=== PATIENT | female | born 1990 | race Caucasian/White ===

== ENCOUNTER 2021-04-08 19:38 | Emergency (ER) | payer MEDICAID, SELFPAY ==
[2021-04-08 19:45] VITALS: BP 140/82; PULSE 76; RESP 20; TEMP 35.7; O2SAT 100
--- NOTE | 2021-04-08 20:03 | ED.GENADULT ---
HPI - General Adult General Chief complaint: Nausea/Vomiting/Diarrhea Stated complaint: nausea, pt is Source: patient Mode of arrival: ambulatory Limitations: no limitations History of Present Illness HPI narrative: Patient presents for evaluation of nausea and vomiting since this morning. She states she is unable to keep anything down. She reports vomiting 25 times today. She is currently , 15 weeks gestation, with confirmed IUP during this . . RHEUMATOLOGY NURSE is Dr. Brenner at [facility]. Called her RHEUMATOLOGY NURSE who advised that she urgent care for IV hydration. Patient states she did have nausea and vomiting earlier in her , and responded well to B6. She denies any fever, chills, abdominal pain, vaginal bleeding, vaginal discharge, urinary symptoms. No recent sick contacts. No new foods. No recent antibiotics. She states she did test positive for Covid about 2 weeks ago. Symptoms at that time were limited to body aches. Those symptoms resolved. She took a repeat Covid test and that was negative. Related Data Home Medications Medication Instructions Recorded Confirmed No Home Medications 04/08/21 04/08/21 Allergies Allergy/AdvReac Type Severity Reaction Status Date / Time naproxen AdvReac Intermediate gi upset Verified 04/08/21 19:46 Review of Systems Review of Systems: CONSTITUTIONAL: Denies fever, chills, or sweats. EYES: Denies visual changes, redness, or discharge. ENT: Denies rhinorrhea, congestion, sore throat, or otalgia. CARDIOVASCULAR: Denies chest pain, palpitations, or edema. RESPIRATORY: Denies cough or dyspnea. GASTROINTESTINAL: Reports nausea and vomiting. Denies abdominal pain and diarrhea. GENITOURINARY: Denies dysuria or hematuria. SKIN: Denies rash or itching. MUSCULOSKELETAL: Denies back pain, joint pain, or myalgia. NEUROLOGIC: Denies headache, numbness, dizziness, or weakness. PSYCHIATRIC: Denies anxiety or depression. [facility] Past Medical History Medical History No pertinent past medical history Surgical History Surgical History No pertinent past surgical history Family History Family History Mother No pertinent past medical history Social History Social History Alcohol intake: never Substance use: never Additional living arrangements comments: Lives with sergey? Gender identity (if verbalized by the patient): Female Sexual Orientation (if Verbalized by the Patient): Straight or Heterosexual Spiritual care concerns: No Exam Narrative: GENERAL: Appears acutely ill, although nontoxic. HEAD: Normocephalic, atraumatic. EYES: PERRLA and EOMI. ENT: Nares clear, no rhinorrhea or epistaxis. Mucous membranes moist. Oropharynx without tonsillar hypertrophy exudate or other lesions. Bilateral TMs pearly farrell nonbulging NECK: Supple. No adenopathy or masses. No carotid bruits or JVD CHEST: Clear to auscultation. No respiratory distress. No wheezes rales or rhonchi HEART: Regular rate and rhythm. No murmur heard. Normal peripheral pulses. ABDOMEN: Soft, nontender, nondistended, normal active bowel sounds. Gravid uterus EXTREMITIES: Normal range of motion. No edema. SKIN: Warm, dry, no rash. NEURO: No focal deficits. Alert and oriented x3. PSYCH: Normal mood and affect. Course Course Emergency Course: This is a 30-year-old female who presented with complaints of nausea and vomiting, with inability to keep anything down. She is currently , 15 weeks gestation. She has already had a confirmed IUP per ultrasound during this . heart tones were detected. We do not have the capacity to provide patient with IV fluids here. I contacted [facility] and spoke with CARLOS Mehta, who
--- NOTE | 2021-04-08 20:05 | PC.NURSE ---
2000 FHTs auscultated lower suprapubic area at 136 per minute.
== END 2021-04-08 20:05 | disposition short-term general hospital (02) ==
PROVIDERS: Emergency Provider Nurse Practitioner
DX: O21.9 Vomiting of pregnancy, unspecified (principal); Z3A.15 15 weeks gestation of pregnancy
CPT/HCPCS: 99202; G0463

== ENCOUNTER 2021-04-08 20:25 | Emergency (ER) | payer MEDICAID, SELFPAY ==
[2021-04-08 20:29] VITALS: BP 125/73; PULSE 71; RESP 16; O2SAT 100
--- NOTE | 2021-04-08 21:10 | ED.GENADULT ---
HPI - General Adult General Chief complaint: Nausea/Vomiting/Diarrhea Stated complaint: N/V 15wk preg Time Seen by Provider: 04/08/21 21:03 History of Present Illness HPI narrative: Patient 30-year-old female presents to emergency department with chief complaint of nausea and vomiting. The patient reports that she is currently and followed by OB at [facility]. Patient reports that she has had problems with nausea and vomiting during this . The patient reports that for about a week she has not really had significant nausea and vomiting until the last 24 hours she started vomiting again patient states today she has vomited about 27 times and has vomited since she arrived to the emergency department the patient reports she is vomiting up just clear liquid at this point. Patient denies pain reports has had a confirmatory ultrasound Related Data Allergies Allergy/AdvReac Type Severity Reaction Status Date / Time naproxen AdvReac Intermediate gi upset Verified 04/08/21 19:46 Review of Systems Review of Systems: A 10 system review of systems was completed on the patient and is negative except for what is stated in the HPI. Nursing and ancillary documentation was reviewed. PMFSH Past Medical History Medical History No pertinent past medical history Surgical History Surgical History No pertinent past surgical history Family History Family History Mother No pertinent past medical history Social History Social History Alcohol intake: never Substance use: never Additional living arrangements comments: Lives with sergey? Gender identity (if verbalized by the patient): Female Sexual Orientation (if Verbalized by the Patient): Straight or Heterosexual Spiritual care concerns: No Exam Narrative: GENERAL: Well-appearing, well-nourished, and in no acute distress. HEAD: Normocephalic, atraumatic. EYES: PERRLA and EOMI. ENT: Nares clear, no rhinorrhea or epistaxis. Mucous membranes moist. NECK: Supple. CHEST: Clear to auscultation. No respiratory distress. HEART: Regular rate and rhythm. No murmur heard. Normal peripheral pulses. ABDOMEN: Soft, nontender, nondistended, normal active bowel sounds. EXTREMITIES: Normal range of motion. No edema. SKIN: Warm, dry, no rash. NEURO: No focal deficits. Alert and oriented x3. PSYCH: Normal mood and affect. Course Vital Signs Vital signs: Vital Signs Pulse Rate 71 04/08/21 20:29 Respiratory Rate 16 04/08/21 20:29 Blood Pressure 125/73 04/08/21 20:29 Pulse Oximetry 100 04/08/21 20:29 Pulse Rate 71 04/08/21 20:29 Respiratory Rate 16 04/08/21 20:29 Blood Pressure 125/73 04/08/21 20:29 Pulse Oximetry 100 04/08/21 20:29 Medical Decision Making Vital Signs Vital Signs: Vital Signs Pulse Rate 71 04/08/21 20:29 Respiratory Rate 16 04/08/21 20:29 Blood Pressure 125/73 04/08/21 20:29 Pulse Oximetry 100 04/08/21 20:29 Pulse Rate 71 04/08/21 20:29 Respiratory Rate 16 04/08/21 20:29 Blood Pressure 125/73 04/08/21 20:29 Pulse Oximetry 100 04/08/21 20:29 Lab Data Result diagrams: 04/08/21 21:24 04/08/21 21:24 Labs: Lab Results 04/08/21 04/08/21 04/08/21 Range/Units 21:24 21:24 22:16 WBC 14.1 H (4.5-10.0) K/mm3 RBC 4.29 (4.2-5.4) M/mm3 Hgb 13.4 (12.0-15.0) g/dL Hct 38.9 (37.0-47.0) % MCV 90.7 (80-100) fl MCH 31.2 (26-34) pg MCHC 34.4 (32-36) g/dl RDW 12.9 (11.5-14.5) % Plt Count 228 (150-375) k/mm3 MPV 10.2 (7.4-10.4) fl Immature Gran % (Auto) 0.4 (0-0.5) % Neut % (Auto) 92.8 H (45.5-73.1) % Lymph % (Auto) 4.9 L (18.3-44.2) % M
[2021-04-08] MEDS: SODIUM CHLORIDE 0.9% IV 1,000 ML 999 ML IV CONT ×2 (21:25→23:20)
[2021-04-08] MEDS: METOCLOPRAMIDE HCL INJ 10 MG/2 ML VIAL IV PUSH (21:25)
[2021-04-08 21:30] LABS: Basophils Percent Auto 0.1 % (0.2-1.2); Hematocrit 38.9 % (37.0-47.0); Hemoglobin 13.4 g/dL (12.0-15.0); Immature Granulocyte Absolute 0.06 K/mm3 (0.00-0.031); Immature Granulocyte Percent A 0.4 % (0-0.5); Lymphocytes Absolute Auto 0.69 K/mm3 (0.9-3.2); Lymphocytes Percent Auto 4.9 % (18.3-44.2); Mean Corpuscular HGB Conc 34.4 g/dl (32-36); Mean Corpuscular Hemoglobin 31.2 pg (26-34); Mean Corpuscular Volume 90.7 fl (80-100); Mean Platelet Volume 10.2 fl (7.4-10.4); Monocytes Absolute Auto 0.3 K/mm3 (0.1-0.6); Monocytes Percent Auto 1.8 % (2.6-8.5); Neutrophils Absolute Auto 13.1 K/mm3 (1.3-6.7); Neutrophils Percent Auto 92.8 % (45.5-73.1); Platelet Count Result 228 k/mm3 (150-375); Red Blood Count 4.29 M/mm3 (4.2-5.4); Red Cell Distribution Width 12.9 % (11.5-14.5); White Blood Count 14.1 K/mm3 (4.5-10.0)
[2021-04-08 21:41] LABS: Alanine Aminotransferase 21 U/L (4-35); Albumin Level 4.7 g/dL (3.5-5.1); Alkaline Phosphatase 61 U/L (38-126); Anion Gap 9 mmol/L (8-16); Aspartate Amino Transferase 27 U/L (14-36); Bilirubin,Total 0.6 mg/dL (0.2-1.3); Blood Urea Nitrogen 10 mg/dL (7-17); Calcium 9.8 mg/dL (8.4-10.2); Carbon Dioxide 20 mmol/L (22-30); Chloride 106 mmol/L (98-107); Estimated CRCL calculation 208 ml/min; Estimated Glomerular Filt Rate > 60; Glucose 104 mg/dL (65-110); Lipase 263 U/L (23-300); Magnesium 1.7 mg/dL (1.6-2.3); Potassium 3.9 mmol/L (3.4-5.0); Sodium 135 mmol/L (137-145)
[2021-04-08 22:34] LABS: Add Urine Microscopic? YES; Appearance Urine Clear (Clear); Bilirubin Urine Negative (Negative); Blood Urine Negative (Negative); Color Urine Yellow (Yellow); Glucose Urine UA Negative (Negative); Ketones Urine 2+ mg/dL (Negative); Leukocyte Esterase Ur Negative LEU/UL (Negative); Mucus Urine Heavy /lpf; Nitrate Urine Negative (Negative); Protein Urine 1+ mg/dL (Negative); Squamous Epithelial Cell Urine Few /hpf (Few); Urobilinogen Urine Negative mg/dL (<2.0); WBC Urine 0-3 /hpf
[2021-04-08] MEDS: MAGNESIUM SULF 1 GM/D5W 100 ML 1 GM/100 ML BAG IVPB (23:21)
[2021-04-08] MEDS: POTASSIUM CHLORIDE 20 MEQ PACKET (FOR LIQUID) PO (23:21)
== END 2021-04-09 00:07 | disposition home or self-care (01) ==
PROVIDERS: Emergency Provider Emergency Medicine
DX: O21.9 Vomiting of pregnancy, unspecified (principal); Z3A.15 15 weeks gestation of pregnancy
CPT/HCPCS: 36415; 80053; 81001; 83690; 83735; 85025; 96361; 96365; 96375; 99284; A9270; J2765; J3475; J7030

== ENCOUNTER 2023-07-12 11:43 | Observation (INO) | payer OTHER, SELFPAY ==
[2023-07-12] VITALS (20 sets, daily range): BP systolic 71–133; BP diastolic 42–73; PULSE 59–92; RESP 12–29; TEMP 35.8–36.6; O2SAT 91–100; BMI 33.5
--- NOTE | ~2023-07-12 | CT_ITS ---
Clinical Indication: Pulmonary embolus CT Scan of the Chest with Contrast: Technique: Contiguous sections were acquired throughout the chest after intravenous administration of 100 cc of Omnipaque 350. Dose reduction technique was used on this scan by utilizing automated expos ure control and iterative reconstruction technique. The dose-length product (DLP) was 683.53 mGy-cm. Findings: There is no evidence of any significant mediastinal, hilar or axillary lymphadenopathy. There is no f illing defect in the pulmonary arterial tree to suggest pulmonary embolus. There is no evidence of ao rtic dissection or aneurysm. There is no evidence of pleural or pericardial effusion. The lungs are clear. No pulmonary nodules or infiltrates are noted. Images through the upper abdomen reveal no abnormalities. Impression: No evidence of pulmonary embolus, aortic dissection, or aortic aneurysm. Clear lungs. Reviewed, dictated and finalized at [facility]. Impression: No evidence of pulmonary embolus, aortic dissection, or aortic aneurysm. Clear lungs.
--- NOTE | 2023-07-12 11:59 | ECG_ITS ---
SEE SCANNED COPY FOR CONFIRMED REPORT MTDD
[2023-07-12 12:03] LABS: Glucose Point of Care 102 mg/dl (65-105)
[2023-07-12 12:08] LABS: Basophils Percent Auto 0.2 % (0.2-1.2); Eosinophils Absolute Auto 0.1 K/mm3 (0-0.3); Eosinophils Percent Auto 0.7 % (0-4.4); Hematocrit 35.8 % (37.0-47.0); Immature Granulocyte Absolute 0.07 K/mm3 (0.00-0.031); Immature Granulocyte Percent A 0.7 % (0-0.5); Lymphocytes Absolute Auto 1.75 K/mm3 (0.9-3.2); Lymphocytes Percent Auto 18.4 % (18.3-44.2); Mean Corpuscular HGB Conc 33.5 g/dl (32-36); Mean Corpuscular Hemoglobin 30.5 pg (26-34); Mean Corpuscular Volume 91.1 fl (80-100); Mean Platelet Volume 10.1 fl (7.4-10.4); Monocytes Absolute Auto 0.6 K/mm3 (0.1-0.6); Monocytes Percent Auto 6.4 % (2.6-8.5); Neutrophils Percent Auto 73.6 % (45.5-73.1); Platelet Count Result 233 k/mm3 (150-375); Red Blood Count 3.93 M/mm3 (4.2-5.4); White Blood Count 9.5 K/mm3 (4.5-10.0)
--- NOTE | 2023-07-12 12:08 | ED.SYNCOPE ---
HPI - Syncope General Chief Complaint: Syncope Stated Complaint: syncopy Time Seen by Provider: 07/12/23 12:00 Source: patient and family History of Present Illness HPI narrative: 32 years old white female, 6 months , came to the emergency room because went out for lunch with friends and family, did not feel well, developed sharp stabbing pain at the left side of the chest lasted for 1 minutes then resolved, subsequently patient feels like she is going to black out and she did black out 3 times since that event. Patient vomited twice in between. Currently feeling okay, denying any symptoms. She denies any chest pain, shortness of breath, back pain, fever, chills. Patient report having history of cold symptoms for the last 2 weeks, did not see any medical provider for it. Patient does not smoke or drink, healthy otherwise, on vitamins. Related Data Allergies Allergy/AdvReac Type Severity Reaction Status Date / Time naproxen AdvReac Intermediate gi upset Verified 07/12/23 11:54 Review of Systems Review of Systems: All systems reviewed & are unremarkable except as noted in HPI and below PMFSH Past Medical History Medical History No pertinent past medical history Surgical History Surgical History No pertinent past surgical history Family History Family History Mother No pertinent past medical history Social History Social History Alcohol intake: never Substance use: never Additional living arrangements comments: Lives with sergey? Gender identity (if verbalized by the patient): Female Sexual Orientation (if Verbalized by the Patient): Straight or Heterosexual Spiritual care concerns: No Exam Narrative: General appearance: Well-developed, well-nourished Skin: Normal color Head: Normocephalic, nontraumatic Eyes: Clear conjunctiva ENT: Oropharynx normal, ears normal, nose normal Neck: Supple, nontender Chest and respiratory: Airway patent, no respiratory distress, no accessory muscle use Heart: Regular rate/rhythm Abdomen: Soft, nontender, no organomegaly, quiet bowel sounds Vascular: Normal peripheral pulses, normal capillary refill. Musculoskeletal: Normal range of motion, nontender back Neurologic: Alert and oriented ?3, BOTTOM SAW OPERATOR is normal as tested, no gross motor deficit Course Course Emergency Course: Improving Reevaluation(s) Reevaluation #1: Currently patient feels back to normal, denying any symptoms. Date: 07/12/23 Time: 14:15 Consultations Consultation #1: Dr. Virginia Cain for CTA to rule out PE Date: 07/12/23 Time: 14:15 Vital Signs Vital signs: Vital Signs Temperature 36.6 C 07/12/23 11:47 Pulse Rate 85 07/12/23 11:47 Respiratory Rate 24 H 07/12/23 11:47 Blood Pressure 99/72 L 07/12/23 11:47 Pulse Oximetry 93 07/12/23 11:47 Oxygen Delivery Room Air 07/12/23 11:47 Temperature 36.6 C 07/12/23 11:47 Pulse Rate 92 07/12/23 14:46 Respiratory Rate 26 H 07/12/23 14:46 Blood Pressure 105/64 07/12/23 14:46 Pulse Oximetry 98 07/12/23 14:46 Oxygen Delivery Room Air 07/12/23 11:47 MDM - Syncope MDM Narrative Medical decision making narrative: Patient presents with syncopes, on arrival to the ED blood pressure was low,90 over 72, patient denies any diarrhea or vomiting in the last 24 hours Differential diagnosis. Patient reports history of syncopes in the past secondary to migraine headache, she denies any headache today. Differential d
[2023-07-12] MEDS: SODIUM CHLORIDE 0.9% IV 1,000 ML 999 ML IV CONT ×2 (12:14)
[2023-07-12 12:18] LABS: Alanine Aminotransferase 15 U/L (6-35); Albumin Level 3.9 g/dL (3.5-5.1); Alkaline Phosphatase 62 U/L (38-126); Anion Gap 7 mmol/L (4-12); Aspartate Amino Transferase 21 U/L (14-36); Bilirubin,Total 0.4 mg/dL (0.2-1.3); Blood Urea Nitrogen 11 mg/dL (7-17); Carbon Dioxide 19 mmol/L (22-30); Chloride 110 mmol/L (98-107); Estimated CRCL calculation 171 ml/min; Estimated Glomerular Filt Rate > 60; Glucose 101 mg/dL (65-110); Potassium 3.8 mmol/L (3.4-5.0); Sodium 136 mmol/L (137-145)
[2023-07-12 12:49] LABS: Alveolar/Arterial O2 Gradient 31.8 mmHg; Base Excess ABG -3.3 mEq/l (+/-2.0); Device ROOM AIR; Fractional Inspired Oxygen 21 %; HCO3 ABG 20.6 mEq/l (22.0-26.0); Modified Allen's Test Pass; Oxygen Content ABG 14.2 %vol (16.0-22.0); Oxygen Saturation ABG 95.8 % (95.0-100.0); Oxyhemoglobin 93.1 % THb (90.0-100.0); PCO2 ABG 33.3 mmHg (35.0-45.0); PO2 ABG 78.1 mmHg (80.0-100.0); PO2 FiO2 Ratio Arterial Blood 3.72 %; Site Drawn LEFT RADIAL; Total Hemoglobin 10.8 g/dL (12.0-18.0)
[2023-07-12 13:09] LABS: D Dimer 0.55 ug/mL (<0.48)
[2023-07-12 13:27] LABS: Influenza A QL RT-PCR Negative (Negative); Influenza B QL RT-PCR Negative (Negative); SARS-CoV-2 RNA PCR Negative (Negative)
--- NOTE | 2023-07-12 15:21 | PM.IMHP ---
H&P: HPI History of Present Illness Date/Time: 07/12/23 15:21 Chief Complaint: syncope with hypotension Narrative: This is a 32-year-old female patient currently 6 months (25 weeks) who is admitted to the hospital for syncope with hypotension. Patient reports that she was sitting around talking and eating breakfast when she suddenly passed out at the table. She denies any head injury trauma or initial prodrome all symptoms. After regaining consciousness roughly 30 seconds, she was back to normal immediately but had a 2nd syncopal episode and small amount of emesis at that time. Patient reports a total of 3 syncopal episodes this morning did have some fuzzy vision indicating she might pass out before the 2nd syncope. EMS was called and her 3rd episode of syncope was during the ambulance trip to the hospital. She had to be awakened using ammonia smelling salts. On arrival to the emergency department patient noted to be hypotensive which improved after 2 L of IV fluids. Patient reports she has had some cold symptoms over the last 2 weeks and she was vacation in [place] she had a little bit right-sided pelvic pain that cleared and has recurred. She denies any diarrhea. While in the emergency department the ER physician contacted INSTRUMENT MECHANICS SUPERVISOR at [facility] (patient plans to deliver at [facility]) and INSTRUMENT MECHANICS SUPERVISOR at our facility. Both are requesting that patient stay for echocardiogram to rule out induced cardiomyopathy. Cardiology was consulted by the ER physician to also see the patient. CTA was completed to rule out pulmonary embolus. This was negative. Lungs were clear on CT image, no signs of aspiration pneumonitis. Just prior to arriving on the floor patient began to have recurrent episodes of emesis. She states that she has been having increased emesis during the 2nd trimester of this and is on Zofran at home which sometimes helps. Her symptoms have been intermittent for weeks but became more prominent recently. Patient denies any abdominal pain, vaginal bleeding, cramping, vaginal discharge, concern for STD, concern for safety or violence. She states she has a past history of frequent headaches/chronic migraine and she usually treats that with ibuprofen but has not been doing so during . Patient's significant other and later patient's mother were both at bedside to provide cooperating information. Review of Systems Review of Systems: All systems reviewed & are unremarkable except as noted in HPI and below PMFSH Past Medical History Medical History No pertinent past medical history Surgical History Surgical History No pertinent past surgical history Family History Family History Mother No pertinent past medical history Social History Social History Smoking status: Never smoker Alcohol intake: never Substance use: never Do You Feel Safe in your Home?: Yes Lack of Transportation: No Lack of Food: Never True Current Housing: I Have Housing Concerned About Future Housing: No Difficulty Paying Gas/Electric Bills: No Difficulty Paying for Meds: No Currently Unemployed: No Education: Decline to Answer Difficulty w/ Childcare or Family Care: Decline to Answer Additional living arrangements comments: Lives with fianc? Gender identity (if verbalized by the patient): Female Sexual Orientation (if Verbalized by the Patient): Straight or Heterosexual Spiritual care concerns: No Meds Home Medications and Allergies Home Medications Medication Instructions Recorded Confirmed Type metoclopramide HCl 10 mg tablet 10 mg PO QID PRN nausea and 04/08/21 07/12/23 Rx (Reglan) vomiting 7 days #28 tabs vitamins no.85-iron 10 1 cap PO DAILY 07/12/23 07/12/23 History
[2023-07-12] MEDS: SODIUM CHLORIDE 0.9% IV 1,000 ML 150 ML IV CONT ×2 (16:07→23:17)
[2023-07-12] MEDS: ONDANSETRON HCL ODT 4 MG TABLET PO (17:32)
--- NOTE | 2023-07-12 17:45 | ADMGEN ---
This patient, Cassandra Hein, was admitted to IMU Room 231-01. Patient/family oriented to hospital policies and general routines including ID bracelet, bed and alarms, visiting hours, pain management, procedures, bathroom and other care routines, personal items, smoking policy, room service/diet, and visiting hours. Information on how to activate the Rapid Response Team has been discussed. Patient/Family are encouraged to report perceived risks to care and to ask questions if they do not understand what they are told or what they should do.
[2023-07-12] MEDS: ACETAMINOPHEN 325 MG TABLET 650 MG PO (18:22)
[2023-07-12] MEDS: METOCLOPRAMIDE HCL INJ 10 MG/2 ML VIAL IV PUSH (18:22)
[2023-07-13] VITALS (10 sets, daily range): BP systolic 114–127; BP diastolic 49–74; PULSE 55–85; RESP 18–20; TEMP 36–36.8; O2SAT 96–98
--- NOTE | 2023-07-13 | ECHO_ITS ---
Patient Info Name: Cassandra Hein Age: 32 years : 1990 Gender: Female Ht: 70 in Wt: 234 lbs BSA: 2.32 m2 HR: 80 bpm BP: 114 / 54 mmHg Heart Rhythm: Sinus Rhythm Technical Quality: Good Exam Date: 07/13/2023 10:04 AM Exam Location: Echo Lab Patient Status: Inpatient Admit Date: 07/12/2023 Staff Ordering Physician: Sachin Olsen APRN Whistle Punk: Xuan Narayan RDCS Attending Provider: Lacho Peoples MD Referring Physician: Raúl SANCHEZ; Exam Type: CA echo doppler color flow Study Info Indications R55 - Syncope and collapse Complete two-dimensional, color flow and Doppler transthoracic echocardiogram is performed. Summary 1. Complete two-dimensional, color flow and Doppler transthoracic echocardiogram is performed. 2. Left ventricular chamber dimension is normal. 3. Left ventricular systolic function is normal, estimated at 60-65%. 4. There is no increased left ventricular wall thickness. 5. The left ventricular diastolic function is normal. 6. There is mild tricuspid valve regurgitation. 7. There is mild pulmonic regurgitation. 8. There is mild mitral valve regurgitation. 9. Atrial septum was thin and hypermobile. Color flow evidence of shunting consistent with PFO. Left Ventricle Left ventricular chamber dimension is normal. Left ventricular systolic function is normal, estimated at 60-65%. There is no increased left ventricular wall thickness. The left ventricular diastolic function is normal. Right Ventricle Right ventricular chamber dimension is normal. Right ventricular systolic function is normal. Left Atria Left atrial chamber dimension is normal. Right Atria Right atrial chamber dimension is normal. Atrial Septum Atrial septum was thin and hypermobile. Color flow evidence of shunting consistent with PFO. Aortic Valve The aortic valve is trileaflet. There is no aortic valve sclerosis. There is no aortic valve stenosis. There is trace aortic valve regurgitation. Pulmonic Valve The pulmonic valve is normal. There is no pulmonic valve stenosis. There is mild pulmonic regurgitation. Mitral Valve The mitral valve has thickened leaflets. There is no mitral valve stenosis. There is mild mitral valve regurgitation. Tricuspid Valve The tricuspid valve leaflets are normal. There is no significant tricuspid valve stenosis. There is mild tricuspid valve regurgitation. No pulmonary hypertension, estimated pulmonary arterial systolic pressure is 32 mmHg. Pericardium/Pleural The pericardium appears normal. There is trivial pericardial effusion. Inferior Vena Cava Normal inferior vena cava with >50% collapse upon inspiration consistent with normal right atrial pressure, 10 mmHg. Aorta The aortic root size at the sinus of Valsalva is normal. Left Ventricular Outflow Tract Name Value Normal LVOT 2D LVOT Diameter 2.0 cm LVOT Doppler LVOT Peak Gradient 6 mmHg LVOT Mean Gradient 3 mmHg LVOT VTI 24 cm LVOT VTI/AV VTI Ratio 0.8 LVOT Stroke Volume 80 ml LVOT CO
[2023-07-13] MEDS: METOCLOPRAMIDE HCL INJ 10 MG/2 ML VIAL IV PUSH (04:16)
[2023-07-13] MEDS: ACETAMINOPHEN 325 MG TABLET 650 MG PO (04:26)
[2023-07-13 04:39] LABS: Basophils Percent Auto 0.2 % (0.2-1.2); Eosinophils Absolute Auto 0.1 K/mm3 (0-0.3); Eosinophils Percent Auto 0.4 % (0-4.4); Hematocrit 36.9 % (37.0-47.0); Hemoglobin 11.9 g/dL (12.0-15.0); Immature Granulocyte Absolute 0.08 K/mm3 (0.00-0.031); Immature Granulocyte Percent A 0.7 % (0-0.5); Lymphocytes Absolute Auto 2.09 K/mm3 (0.9-3.2); Lymphocytes Percent Auto 17.3 % (18.3-44.2); Mean Corpuscular HGB Conc 32.2 g/dl (32-36); Mean Corpuscular Hemoglobin 30.2 pg (26-34); Mean Corpuscular Volume 93.7 fl (80-100); Mean Platelet Volume 10.4 fl (7.4-10.4); Monocytes Absolute Auto 0.8 K/mm3 (0.1-0.6); Monocytes Percent Auto 6.2 % (2.6-8.5); Neutrophils Absolute Auto 9.1 K/mm3 (1.3-6.7); Neutrophils Percent Auto 75.2 % (45.5-73.1); Platelet Count Result 239 k/mm3 (150-375); Red Blood Count 3.94 M/mm3 (4.2-5.4); Red Cell Distribution Width 13.1 % (11.5-14.5); White Blood Count 12.1 K/mm3 (4.5-10.0)
[2023-07-13 04:56] LABS: Alanine Aminotransferase 13 U/L (6-35); Albumin Level 3.5 g/dL (3.5-5.1); Alkaline Phosphatase 68 U/L (38-126); Anion Gap 7 mmol/L (4-12); Aspartate Amino Transferase 19 U/L (14-36); Bilirubin,Total 0.4 mg/dL (0.2-1.3); Blood Urea Nitrogen 6 mg/dL (7-17); Calcium 8.6 mg/dL (8.4-10.2); Carbon Dioxide 20 mmol/L (22-30); Chloride 111 mmol/L (98-107); Estimated CRCL calculation 220 ml/min; Estimated Glomerular Filt Rate > 60; Glucose 97 mg/dL (65-110); Magnesium 1.8 mg/dL (1.6-2.3); Potassium 3.6 mmol/L (3.4-5.0); Sodium 138 mmol/L (137-145)
[2023-07-13] MEDS: SODIUM CHLORIDE 0.9% IV 1,000 ML 150 ML IV CONT (05:55)
--- NOTE | 2023-07-13 06:46 | PC.NURSE ---
07/12/23: Spoke with Sachin Olsen NP. during shift report exchange about Pt in regards to the need for monitoring while the Pt is in IMU. Per Sachin Olsen NP., he feels that the patient does not require the need for routine monitoring at this time. He states that the patient is feeling the baby move frequently, is having no abdominal/uterine pain or cramping, is having no bleeding or spotting at this time. States to call the hospitalist if anything the above should change.
[2023-07-13] MEDS: MULTIVIT/MIN/PREN/FOL AC/IRON TABLET 1 TAB PO (09:40)
--- NOTE | 2023-07-13 10:08 | PM.CNCAR ---
Assessment and Plan Assessment and plan (1) Syncope and collapse: Code(s): R55 - Syncope and collapse Status: Acute Assessment and Plan: Sounds vasovagal in etiology. She became diaphoretic and had symptoms that seem consistent with predominant vasodepressor component vasovagal syncope. She also had some vomiting which obviously will also increase vagal tone. Vomiting last night was also noted and at that time she had junctional rhythm with heart rate in the 50s. She has been having occasional nausea and vomiting throughout this . Significant amount of vomiting yesterday. This is of the setting of inadequate fluid intake. For now, continue IV fluids. 2D echocardiogram with Doppler is ordered and will be reviewed but unlikely related to cardiomyopathy. She should have follow-up with her primary OB. In-hospital be opinion is pending. If echocardiogram is unremarkable and she is able to tolerate food and drink, anticipate discharge later today or tomorrow (2) Hypotension: Code(s): I95.9 - Hypotension, unspecified Status: Acute Assessment and Plan: Likely related to vasodepressor component of vasovagal syncope. Responded to IV fluid (3) Nausea/vomiting in : Code(s): O21.9 - Vomiting of , unspecified Status: Acute Assessment and Plan: per OB and hospitalists History of Present Illness History of Present Illness Consult date/time: 07/13/23 10:08 Requesting physician: Alisha Piper MD Consult reason: Other (Syncope) Reason For Visit: Syncope/Hypotension/ Narrative: Reason consultation: Syncope and hypotension Date of service 07/13/2023 Requesting provider: Dr. Piper History: This is a 32-year-old female patient 25 weeks who is admitted to the hospital for syncope with hypotension.? She states that she was eating breakfast yesterday and developed a sharp chest pain that lasted about 30 seconds. Shortly thereafter she felt like her vision became picks elated and that her hearing was altered. She was diaphoretic and told her significant other that she was going to pass out. She then did pass out for about 30 seconds. Upon regaining consciousness she appeared incoherent and then she passed out again. EMS was called. By the time EMS arrived she was awake but on the way to the hospital she had another episode where her she passed out. Whenever she awakened, she states she cannot see and then gradually over a period of a few minutes her vision started to come back. She did receive IV fluids which did seem to help. She has had significant amount of vomiting overnight. She has been vomiting some throughout her but usually not in excess per patient. She states that every couple of days she will eat something or see something that is not several well with her and she will vomit. She admits that she likely is not drinking enough fluids. There was no injury..? She had to be awakened using ammonia smelling salts.? Blood pressure in the ER was in the 70 systolic. Last night she had junctional rhythm with heart rate in the 50s in the setting of being nauseous and vomiting.? Her OB is at [facility]. Concern for cardiomyopathy an echocardiogram was requested which is at this point still pending.? She does describe occasional migraine headaches. In general she denies any significant edema, paroxysmal nocturnal dyspnea, orthopnea, palpitations, chest pain he says that aforementioned. No significant shortness of breath. Review of Systems Review of Systems: All systems reviewed & are unremarkable except as noted in HPI and below Constitutional: Constitutional: Denies body ache(s) Eyes: Eyes: Denies blurry vision ENT: Denies Normal hearing present Cardiovascular: Cardiovascular: Reports chest pain Respiratory: Respiratory: Denies hemoptysis Gastrointestinal: Gastrointestinal: Denies melena Genitourinary: Genitourinary: Denies
--- NOTE | 2023-07-13 11:18 | WPDCN ---
HPI Data of Consult Date/Time: 07/13/23 11:18 Requesting Physician: Lacho Peoples MD Primary Care Provider: UNKNOWN,DOCTOR Consult Narrative Narrative: Cassandra Hein is a 32 year old female 2 para 1001 at approximately 24 weeks gestation. Has received care in [place] with [facility], and no issues with her care or thus far. Yesterday did has syncopal episode x3 and presented to the emergency room here at [facility]. Evaluation for PE was negative, was admitted for further evaluation and potential treatment of the syncopal episodes. She has had a Cardiology consult, echocardiogram performed though final interpretation not complete. Patient does relate a history of migraines though she does state that this episode was not consistent with prior migraine prodrome. She also denies any specific chest pain, shortness of breath or other cardiac or pulmonary issues. Does relate that she has had a left-sided headache, dull, and has persisted since this episode yesterday. I would expect her echocardiogram to be normal, and if so discharge would be reasonable. When she does follow-up her breast puller I have suggested that she have a longer-term Holter monitor, as well as a neurologist to follow-up for her headaches/migraines. If the current headache that she has worsens then she should repeat present but this point do not feel this needs to be evaluated further. Lengthy discussion with patient and significant other, they state good understanding and will call her breast puller on Saturday to discuss further plans and get those other tests/appointments scheduled. [facility] Past Medical History Medical History (Updated 07/13/23 @ 10:17 by Jd Roblero MD) Chronic migraine No pertinent past medical history Surgical History Surgical History No pertinent past surgical history Family History Family History (Updated 07/13/23 @ 10:17 by Jd Roblero MD) Mother No pertinent past medical history Father Alcoholism Social History Social History (Updated 07/13/23 @ 10:18 by Jd Roblero MD) Smoking status: Never smoker Alcohol intake: never Substance use type: marijuana Do You Feel Safe in your Home?: Yes Lack of Transportation: No Lack of Food: Never True Current Housing: I Have Housing Concerned About Future Housing: No Difficulty Paying Gas/Electric Bills: No Difficulty Paying for Meds: No Currently Unemployed: No Education: Decline to Answer Difficulty w/ Childcare or Family Care: Decline to Answer Additional living arrangements comments: Lives with fianc? Gender identity (if verbalized by the patient): Female Sexual Orientation (if Verbalized by the Patient): Straight or Heterosexual Spiritual care concerns: No Meds Home Medications and Allergies Home Medications Medication Instructions Recorded Confirmed Type metoclopramide HCl 10 mg tablet 10 mg PO QID PRN nausea and 04/08/21 07/12/23 Rx (Reglan) vomiting 7 days #28 tabs vitamins no.85-iron 10 1 cap PO DAILY 07/12/23 07/12/23 History mg-folate no.1 1 mg-dha 200 mg capsule (Prenate Pixie) Allergies Allergy/AdvReac Type Severity Reaction Status Date / Time naproxen AdvReac Intermediate gi upset Verified 07/12/23 11:54 Vital Signs Vital Signs - 24 hr 07/12/23 11:47 07/12/23 11:53 07/12/23 12:01 Temperature 97.8 F Pulse Rate 85 80 62 Respiratory Rate 24 H 25 H 20 Blood Pressure 99/72 L 99/72 L 74/47 L Pulse Oximetry 93 91 93 Oxygen Delivery Room Air 07/12/23 12:07 07/12/23 12:10 07/12/23 12:16 Temperature Pulse Rate 59 L 79 77 Respiratory Rate 12 18 21 H Blood Pressure 71/45 L 74/42 L 80/49 L Pulse Oximetry 95 93 97 Oxygen Delivery 07/12/23 13:31 07/12/23 14:01 07/12/23 14:16 Temperature Pulse Rate 87 83 90 Respiratory Rate 25 H 18 23 H Blood Pressure 107/61 1
--- NOTE | 2023-07-13 11:46 | PM.DS ---
DS: Admitting Diagnosis Discharge Date 07/13/2023 Admitting Diagnosis Syncope DS: Discharge Diagnosis Discharge Diagnosis (1) Syncope and collapse: Code(s): R55 - Syncope and collapse Status: Acute Assessment and Plan: Clinically due to increased vagal tone associated with her headache and nausea Has past history of similar occurrences during headache and nausea prior to being (2) Nausea/vomiting in : Code(s): O21.9 - Vomiting of , unspecified Status: Acute Assessment and Plan: Will discuss further with her Ob (3) Chronic migraine: Status: Acute Assessment and Plan: Discussed headache hygiene She will follow-up with her PCP and Ob (4) Hypotension: Code(s): I95.9 - Hypotension, unspecified Status: Acute Assessment and Plan: Clinically related to increased vagal tone Resolved DS: Summary Hospital Course Reason for hospitalization: Syncope Hospital Course: 32-year-old female about 26 weeks was admitted due to nausea associated with migraine headache with subsequent syncope. This occurred 3 times on the day of admission. She was noted to have a junctional rhythm during periods of emesis otherwise or EKG and telemetry were unremarkable. CTA chest was unremarkable. Echocardiogram was normal. Labs are significant for a magnesium of 1.8, D-dimer 0.55, hemoglobin 11.9, hematocrit 36.9, white cells 12.1k, platelets 239k. She had no recurrent episodes during hospitalization. Even before she had a history of migraines up to twice weekly associated with nausea and occasional syncope. She has Zofran for the nausea. Ibuprofen usually helps the headaches some. Imitrex and Excedrin migraine were ineffective. She has not tried magnesium or Nurtec. She does have magnesium on home but has not started yet. She was given magnesium IV 2 g x 1. She received IV saline and p.r.n. Zofran while hospitalized as well. On day of discharge she did have a 5/10 headache with some nausea but no emesis. Was tolerating her diet. Vital signs were stable. Telemetry was normal sinus rhythm. Time Spent with Patient Time attestation: Total time spent providing and/or coordinating discharge services: Exam Narrative: HEENT: PERRL, sclerae nonicteric, pharyngeal mucosa pink and intact NECK: No JVD CHEST: Clear to auscultation. Normal effort. HEART: NL S1/S2, regular, no murmur ABDOMEN: BS+, soft, nontender, no mass, no bruits EXTREMITIES: No cyanosis, edema, or clubbing NEUROLOGIC: CN intact and symmetric to inspection. MUSCULOSKELETAL: Tone and strength symmetric. PSYCH: Alert. Oriented to person, place, and time. DS: Data Data Completed and Pending Labs on day of discharge: Labs from last 24 hours 07/13/23 07/12/23 07/12/23 04:21 12:47 12:45 WBC 12.1 H RBC 3.94 L Hgb 11.9 L Hct 36.9 L MCV 93.7 MCH 30.2 MCHC 32.2 RDW 13.1 Plt Count 239 MPV 10.4 Immature Gran % (Auto) 0.7 H Neut % (Auto) 75.2 H Lymph % (Auto) 17.3 L Dupage % (Auto) 6.2 Eos % (Auto) 0.4 Baso % (Auto) 0.2 Lymph # (Auto) 2.09 Dupage # (Auto) 0.8 H Eos # (Auto) 0.1 Baso # (Auto) 0.0 Abs Immat Gran (auto) 0.08 H Absolute Neuts (auto) 9.1 H Absolute Nucleated RBC 0.000 Nucleated RBC % 0.0 D-Dimer Puncture Site Left radial ABG pH 7.410 ABG pCO2 33.3 L ABG pO2 78.1 L ABG PO2/FiO2 Ratio 3.72 ABG HCO3 20.6 L ABG O2 Saturation 95.8 ABG O2 Content 14.2 L ABG Base Excess -3.3 A-a Gradient 31.8 Oxyhemoglobin 93.1 Total Hemoglobin 10.8 L O2 Delivery Device Room air O2 Liters/Min Not Reportable FiO2 21 Sodium 138 Potassium 3.6 Chloride 111 H Carbon Dioxide 20 L Anion Gap 7 BUN 6 L D Creatinine 0.40 L Estim Creat Clear Calc 220 Estimated GFR > 60 Glucose 97 POC Capillary Glucose Calcium 8
[2023-07-13] MEDS: MAGNESIUM SULF 2 GM/WATER 50ML 2 GM/50 ML BAG IVPB (12:11)
== END 2023-07-13 13:21 | disposition home or self-care (01) ==
LOC: ANHED 14:20 → ANHIMU 17:32
PROVIDERS: Emergency Medicine; Nurse Practitioner; Admitting Provider Internal Medicine; Emergency Provider Emergency Medicine; Visit Provider Internal Medicine
DX: O26.891 Other specified pregnancy related conditions, first trimester (principal); R55 Syncope and collapse; O26.51 Maternal hypotension syndrome, first trimester; O21.9 Vomiting of pregnancy, unspecified; Z3A.01 Less than 8 weeks gestation of pregnancy; Z20.822 Contact with and (suspected) exposure to COVID-19
CPT/HCPCS: 36415; 36600; 71275; 80053; 82805; 82948; 83735; 85025; 85380; 87636; 93005; 93306; 96361; 96374; 96375; 96376; 99285; A9270; G0378; G0379; J2765; J3475; J7030; Q9967

== ENCOUNTER 2024-09-03 12:49 | Emergency (ER) | payer OTHER, SELFPAY ==
[2024-09-03 12:59] VITALS: BP 122/85; PULSE 83; RESP 16; TEMP 36.6; O2SAT 99
--- NOTE | 2024-09-03 13:05 | ED_ITS ---
HPI - Eye Problem General Chief complaint: Eye Problems Stated complaint: Eye Irritation Source: patient Mode of arrival: ambulatory Limitations: no limitations History of Present Illness HPI Narrative: Patient is a 34 year old female who presents to the clinic with complaints of left eye pain and swelling x 4 days. She states that she is unaware of anything getting in her eye. She is a contact wearer, but has been wearing glasses the last few days. She endorses that she is light sensitive and that her left eye keeps watering. Denies any vision changes, foreign body sensation, fevers, chills, body aches. Related Data Home Medications ?Medication ?Instructions ?Recorded ?Confirmed ?Last Taken ?Type vitamins no.85-iron 10 1 cap PO DAILY 07/12/23 07/12/23 07/12/23 History mg-folate no.1 1 mg-dha 200 mg capsule (Prenate Pixie) norethindrone 1 mg-ethinyl tablet 09/03/24 Unknown History estradiol 10 mcg (24)-iron 10 mcg(2) tablet (Lo Loestrin Fe) tirzepatide (weight loss) 2.5 2.5 mg subcut WEEKLY 09/03/24 Unknown History mg/0.5 mL subcutaneous pen injector (Zepbound) Allergies Allergy/AdvReac Type Severity Reaction Status Date / Time naproxen AdvReac Intermediate gi upset Verified 09/03/24 13:02 Review of Systems Review of Systems: CONSTITUTIONAL: Denies body aches, fever, chills EYES: Endorses redness and pain to L?eye and photophobia; No FB sensation.Denies visual changes. ENT: Denies rhinorrhea, congestion, sore throat, or otalgia. CARDIOVASCULAR: Denies chest pain, palpitations RESPIRATORY: Denies cough or dyspnea. GASTROINTESTINAL: Denies abdominal pain, nausea, vomiting, or diarrhea. SKIN: Denies rash, itching, or wounds. MUSCULOSKELETAL: Denies back pain, joint pain, or myalgia. NEUROLOGIC: Denies headache, numbness, tingling, or weakness. All systems reviewed & are unremarkable except as noted in HPI and below PMFSH Past Medical History Medical History Chronic migraine No pertinent past medical history Surgical History Surgical History No pertinent past surgical history Family History Family History Mother No pertinent past medical history Father Alcoholism Social History Social History Smoking status: Never smoker Alcohol intake: never Substance use type: marijuana Do You Feel Safe in your Home?: Yes Lack of Transportation: No Lack of Food: Never True Current Housing: I Have Housing Concerned About Future Housing: No Difficulty Paying Gas/Electric Bills: No Difficulty Paying for Meds: No Currently Unemployed: No Education: Decline to Answer Difficulty w/ Childcare or Family Care: Decline to Answer Additional living arrangements comments: Lives with fianc? Gender identity (if verbalized by the patient): Female Sexual Orientation (if Verbalized by the Patient): Straight or Heterosexual Spiritual care concerns: No Comments At time of signature, I have reviewed and agree with nursing past medical, surgical, social and family history unless otherwise noted. Please see nursing chart for further information. There is no relevant family history pertinent to the presenting complaint. Exam Narrative: GENERAL: Well-appearing HEAD: Normocephalic, atraumatic. EYES: ?L conjunctival injection. No eye lid swelling or redness. ? EOMI. ?Lid eversion with no FB. Wood's Lamp exam shows no corneal abrasion or ulcer. ENT: Mucous membranes pink and moist. ?No rhinorrhea. ?TMs normal bilaterally. ?Throat normal. Uvula midline. CHEST: ?Clear to auscultation. HEART: Regular rate and rhythm. ABDOMEN: Soft, nontender, nondistended SKIN: Warm, dry, no rash. ?Normal skin turgor. NEURO: No focal deficits. Alert and oriented x3 PSYCH: ?Normal affect. Course Course Level of Care: Express Care Visit Vital Signs Vital signs: Vital Signs Temperature 97.9 F 09/03/24 12:59 Pulse Rate 83 09/03/24 12:59 Respiratory Rate 16 09/03/24 12:59 Blood Pressure 122/85 09/03/24 12:59 Pulse Oximetry 99 09/03/24 12:59 Temperature 97.9 F 09/03/24 12:59 Pulse Rate 83 06/26/25 12:59 Respiratory Rate 16 09/03/24 12:59 Blood Pressure 122/85 09/03/24 12:59 Pulse Oximetry 99 09/03/24 12:59 Reviewed MDM - Eye Problem MDM Narrative Medical decision making narrative: Discussed physical exam findings. Ofloxacin prescription given. Advised supportive measures and signs/symptoms to go to the ER. Pt is appropriate for outpt treatment and follow up. Differential Diagnosis Differential diagnosis: Likely corneal abrasion, conjunctivitis and corneal ulcer Critical Care Time Critical Care Time Critical Care Time: No Discharge Plan Discharge Clinical Impression: Conjunctivitis Qualifiers: Conjunctivitis type: acute Acute conjunctivitis type: unspecified Laterality: left Qualified Code(s): H10.32 - Unspecified acute conjunctivitis, left eye Patient Disposition: Home Condition: Stable Instructions: Antibiotic Form, Conjunctivitis (ED) Additional Instructions: Avoid touching or rubbing your eye. Use over the counter lubricating eye drops as needed for irritation Use a warm or cool washcloth on your eye for comfort Use eyedrops as directed - you are contagious for 24 hours after starting the antibiotic Practice good handwashing and hygiene to prevent spread of infection Do not wear the contact lenses. Use a new pair after the infection is resolved. Use new makeup, lashes etc. You may take Tylenol or ibuprofen for pain Be sure to follow up with your Primary Care Physician. For any persistent or worsening symptoms please go to ER. Follow-up with PCP or logistics program manager if condition is not improving in 2-3days. Go to the emergency room if you have severe pain or pressure behind your eye, difficulty seeing, or other severe symptoms Patient Language: Greek Prescriptions: New ofloxacin 0.3 % drops 2 drp LEFT EYE QID Qty: 5 0RF No Action Lo Loestrin Fe 1 mg-10 mcg (24)/10 mcg (2) tablet Zepbound 2.5 mg/0.5 mL pen injector 2.5 mg subcut WEEKLY Rx Instructions: for 4 weeks Prenate Pixie 10 mg iron- 1 mg-200 mg Capsule 1 cap PO DAILY metoclopramide HCl [Reglan] 10 mg tablet 10 mg PO QID PRN (Reason: nausea and vomiting) 7 Days Qty: 28 0RF Follow-up/Referrals: PHYSICIAN,SKIDWAY WORKER [Primary Care Provider] - Stand Alone Forms: Work/School Release IP Time of Disposition: 13:30
[2024-09-03] MEDS: DACRIOSE EYE IRRIGATION 118 ML BOTTLE LEFT EYE (13:25)
[2024-09-03] MEDS: TETRACAINE HCL 0.5% OPHTH SOLN 4 ML BTL LEFT EYE (13:26)
[2024-09-03] MEDS: FLUORESCEIN SOD 1 MG/STRIP LEFT EYE (13:27)
== END 2024-09-03 13:36 | disposition home or self-care (01) ==
DX: H10.32 Unspecified acute conjunctivitis, left eye (principal)
CPT/HCPCS: 99213; A9270; G0463